=== PATIENT | female | born 1980 | race Caucasian/White ===

== ENCOUNTER 2022-04-24 08:52 | Emergency (ER) | payer MEDICAID, SELFPAY ==
--- NOTE | 2022-04-24 | XRR_ITS ---
PROCEDURE INFORMATION: Exam: XR Left Shoulder Exam date and time: 04/24/2022 9:09 AM Age: 41 years old Clinical indication: Left shoulder pain TECHNIQUE: Imaging protocol: Radiologic exam of the Left shoulder. Views: 2 or more views. COMPARISON: CR XR ribs LT mn 3V w [id number] 07/16/2018 9:03 AM FINDINGS: Bones/joints: There is calcific tendinosis of the rotator cuff; this can be exquisitely painful. Mild primary osteoarthritis at the glenohumeral joint. No fracture, dislocation or subluxation. No periosteal reaction or supsicious bone lesion. Soft tissues: No significant soft tissue swelling. IMPRESSION: 1. Calcific tendinosis of the rotator cuff; this can be exquisitely painful. 2. Mild primary osteoarthritis at the glenohumeral joint. 3. No acute fracture is seen. MTDD
--- NOTE | 2022-04-24 | XRR_ITS ---
PROCEDURE INFORMATION: Exam: XR RIGHT Shoulder Exam date and time: 04/24/2022 9:09 AM Age: 41 years old Clinical indication: RIGHT shoulder pain TECHNIQUE: Imaging protocol: Radiologic exam of the RIGHT shoulder. Views: 2 or more views. COMPARISON: CR XR ribs LT mn 3V w [id number] 07/16/2018 9:03 AM FINDINGS: Bones/joints: There is calcific tendinosis of the rotator cuff; this can be exquisitely painful. Mild primary osteoarthritis at the glenohumeral joint. No fracture, dislocation or subluxation. No periosteal reaction or supsicious bone lesion. Soft tissues: No significant soft tissue swelling. IMPRESSION: 1. Calcific tendinosis of the rotator cuff; this can be exquisitely painful. 2. Mild primary osteoarthritis at the glenohumeral joint. 3. No acute fracture is seen. MTDD
--- NOTE | 2022-04-24 08:53 | XRR_ITS ---
PROCEDURE INFORMATION: Exam: XR Left Shoulder Exam date and time: 04/24/2022 9:09 AM Age: 41 years old Clinical indication: Left shoulder pain TECHNIQUE: Imaging protocol: Radiologic exam of the Left shoulder. Views: 2 or more views. COMPARISON: CR XR ribs LT mn 3V w [id number] 07/16/2018 9:03 AM FINDINGS: Bones/joints: There is calcific tendinosis of the rotator cuff; this can be exquisitely painful. Mild primary osteoarthritis at the glenohumeral joint. No fracture, dislocation or subluxation. No periosteal reaction or supsicious bone lesion. Soft tissues: No significant soft tissue swelling.
[2022-04-24 09:02] VITALS: BP 140/92; PULSE 76; RESP 16; TEMP 36.5; O2SAT 98
--- NOTE | 2022-04-24 09:15 | USR_ITS ---
PROCEDURE INFORMATION: Exam: US Duplex Right Upper Extremity Veins, Limited Exam date and time: 04/24/2022 10:43 AM Age: 41 years old Clinical indication: Right upper arm pain. No injury. TECHNIQUE: Imaging protocol: Real-time Duplex ultrasound of the Right Upper Extremity with 2-D paredes scale, color Doppler flow and spectral waveform analysis with image documentation. Limited exam focused on the right upper extremity veins. COMPARISON: No relevant prior studies available. FINDINGS: The right internal jugular, subclavian, axillary, brachial, basilic, cephalic, radial and ulnar veins are patent. There is normal compression and augmentation. US/[place] [id number] IMPRESSION: No DVT is identified.
--- NOTE | 2022-04-24 09:16 | W.ED.EXTPRO ---
HPI - Extremity Problem General: Chief complaint: Extremity Injury, Upper Stated complaint: left shoulder pain Time Seen by Provider: 04/24/22 08:53 History of Present Illness: Patient is a 41-year-old female comes to the ED with right upper arm pain. Symptoms started approximately 4 days ago. Denies any injury or trauma to cause pain. Pain is located in the right upper arm and right shoulder. She states that yesterday she had scuffle and was wrestling her daughter. Today she woke up and it was hurting a lot more. She rates the pain currently 9 out of 10 and any abduction of right arm causes worsening pain. Denies any swelling. He has not taken anything for pain before coming to the ED. Associated symptoms: Deny chest pain, fever(s) or rash Review of Systems Const: Denies: fever(s), chills or fatigue Eyes: Denies: change in vision or eye discomfort ENMT: Denies: throat pain, odynophagia, nasal discharge or nasal congestion Card: Denies: chest pain, palpitations, edema, swelling of feet/ankles, dyspnea on exertion or orthopnea Resp: Denies: dyspnea, productive cough or non-productive cough GI: Denies: abdominal pain, nausea, vomiting, diarrhea, constipation or hematochezia : Denies: flank pain, dysuria or hematuria Musc: Reports: extremity pain (right upper arm and right shoulder); Denies: neck pain, back pain or extremity swelling Skin/Breast: Denies: rash or new lesions Neuro: Denies: headache(s), numbness in extremities or weakness in extremities [facility] ED PFSH: Medical History (Updated 04/25/22 @ 07:03 by ZONIA Whiting) No pertinent family history Surgical History (Updated 04/25/22 @ 07:03 by ZONIA Whiting) No pertinent past surgical history Physical Exam Const: COMMON NORMALS: no acute distress, patient oriented x3 and alert GENERAL APPEARANCE: cooperative and comfortable HENMT: COMMON NORMALS: normocephalic HEAD & SCALP: normocephalic MOUTH: Normal oral and palatal mucosa present THROAT: posterior oropharynx normal and uvula midline Neck/C-Spine: COMMON NORMALS: supple GENERAL: Yes normal visual inspection Resp: COMMON NORMALS: normal respiratory effort, No retractions, No use of accessory muscles and clear to auscultation bilaterally AUSCULTATION: clear to auscultation bilaterally Cardio: COMMON NORMALS: regular rate, regular rhythm, S1 normal heart sound present, S2 normal heart sound present, No gallops present (Cardio), No clicks present (Cardio), No murmurs present (Cardio) and Peripheral pulses 2+ throughout RATE: regular rate RHYTHM: regular rhythm HEART SOUNDS: S1 normal heart sound present and S2 normal heart sound present PERIPHERAL PULSES: Peripheral pulses 2+ throughout GI: COMMON NORMALS: Normal to inspection, nondistended, normoactive bowel sounds present, Soft to palpation, non-tender and no masses PALPATION: Yes Soft to palpation : COMMON NORMALS: Yes no CVA tenderness BLADDER/KIDNEY EXAM: Yes no CVA tenderness Back/Pelvis: COMMON NORMALS: no CVA tenderness Extremity: COMMON NORMALS: normal to inspection NARRATIVE EXTREMITY EXAM: Right upper arm?bicep tenderness soft tissue tenderness of the upper arm. Limited range of motion of right shoulder due to pain. Neurovascular tact distally. No swelling or ecchymosis noted. Neuro: COMMON NORMALS: patient oriented x3 SENSORIUM/ORIENTATION: Yes alert GAIT: Yes Normal gait present Skin: GENERAL SKIN EXAM: dry skin Course Vital Signs: Vital signs: Vital Signs Temperature 97.7 F 04/24/22 09:02 Pulse Rate 76 04/24/22 09:02 Respiratory Rate 16 04/24/22 09:02 Blood Pressure 140/92 04/24/22 09:02 Pulse Oximetry 98 04/24/22 09:02 MDM - Extremity (Nontraumatic) Medical Decision Making Patient is a 41-year-old female comes to the ED with right upper arm pain. Symptoms started approximately 4 days ago. Denies any injury or trauma to cause pain. Pain is located in the right upper arm and right shoulder. She states that yesterday she had scuffle and was wrestling her daughter. Today she woke up and it was hurting a lot more. Vitals are stable. Exam shows Right upper arm?bicep tenderness soft tissue tenderness of the upper arm. Limited range of motion of right shoulder due to pain. Neurovascular tact distally. No swelling or ecchymosis noted. Right shoulder x-ray shows calcific tendinosis of the rotator cuff but no acute fracture findings noted. Ultrasound venous duplex of right upper extremity shows no DVTs. Patient was diagnosed with right shoulder pain and placed in a shoulder sling. I put an order in with case management for patient be referred for follow-up on right shoulder pain. She was discharged home with a prescription for ibuprofen 800 mg. Return to ED precautions given. Patient understood and agreed with plan. Lab Data Radiology Impressions Shoulder X-Ray 04/24/22 08:53 IMPRESSION: 1. Calcific tendinosis of the rotator cuff; this can be exquisitely painful. 2. Mild primary osteoarthritis at the glenohumeral joint. 3. No acute fracture is seen. Venous Duplex 04/24/22 09:15 IMPRESSION: No DVT is identified. Discharge Plan Discharge Patient Disposition: Home Clinical Impression: Right shoulder pain Qualifiers: Chronicity: acute Qualified Code(s): M25.511 - Pain in right shoulder Condition: Stable Prescriptions: New ibuprofen 800 mg tablet 800 mg PO Q8H PRN (Reason: pain) Qty: 30 0RF Discharge Orders: Discharge ED (Routine); Ordered 04/24/22 Ordered By: Rupesh Strange Referrals: Daniel Elizabeth MD [Primary Care Provider] - Discharge Diet: Regular Discharge Activity: Increase activity as tolerated Patient Instructions: Shoulder Sprain (ED), Shoulder Pain (ED) Activity Restrictions/Additional Instructions: Follow-up with medical provider as directed. Case management will be contacting the next several days set up appoint with Ortho for follow-up on shoulder pain. Take medications as prescribed. Return to the ER or your medical provider if condition worsens. Please read and understand discharge instructions. Thank you for choosing [facility] for your healthcare needs today. Please realize this is an emergency room and that we are providing you with a medical screening exam and this may not be complete and all inclusive of all the testing and or work up that you may need to determine your ailment or severity of your illness. It is very important that you follow up as instructed or that you return to the Emergency Department should you have concerns or if your condition changes or worsens in any way. Stand Alone Forms: Work/School Release Coding Level of Care Code ED Project Development Director for Valentin Fwjuno Exam Comprehensive
[2022-04-24] MEDS: HYDROcodone-acetaminophen 5-325 mg Tablet 1 TAB PO (09:52)
[2022-04-24] MEDS: ketorolac 60 mg/2 mL INJ IM (11:11)
--- NOTE | 2022-04-25 11:44 | DCPLANNER ---
Addendum entered by Aicha Lawson 04/28/22 14:32: Patient had a follow up appointment scheduled for 04.27.[address] Carter at ortho. Patient did attend appointment. Original Note: assistant guest services manager had message to schedule a follow up appointment for patient with ortho. assistant guest services manager sent patients information to the front office staff at ortho. Patients information will be printed and reviewed. Clinic will call patient with appointment information.
== END 2022-04-24 11:18 | disposition home or self-care (01) ==
PROVIDERS: Emergency Provider Physician Assistant; PCP Family Medicine
DX: M25.511 Pain in right shoulder (principal)
CPT/HCPCS: 73030; 93971; 96372; 99284; J1885

== ENCOUNTER 2023-10-23 20:36 | Emergency (ER) | payer MEDICAID, SELFPAY ==
[2023-10-23 20:37] VITALS: BP 171/93; PULSE 87; RESP 16; TEMP 36.6; O2SAT 97
--- NOTE | 2023-10-23 21:05 | ED_ITS ---
HPI - Skin/Abscess/Foreign Bdy General: Chief complaint: Skin/Abscess/Foreign Body Stated complaint: breaking out with bumps everywhere itching Time Seen by Provider: 10/23/23 20:59 Source: patient Mode of arrival: ambulatory Limitations: no limitations History of Present Illness: 43-year-old female has a history of ecze ma states she does have an eczema outbreaks currently on steroid cream states she was at work today and noticed what appeared to be bug bites to her right leg mainly to the right knee that is been pruritic in nature she denies any fevers denies any drainage denies any pain Associated symptoms: Deny chills, fever(s), nausea or vomiting Review of Systems Const: Denies: fever(s), chills, body aches or change in appetite ENMT: Denies: throat pain or dental pain Card: Denies: chest pain Resp: Denies: dyspnea GI: Denies: abdominal pain, nausea, vomiting or diarrhea Musc: Denies: neck pain or back pain Skin/Breast: Reports: rash and pruritus PFSH ED PFSH: Medical History No pertinent family history Surgical History No pertinent past surgical history Physical Exam Const: COMMON NORMALS: no acute distress, patient oriented x3 and healthy appearing HENMT: COMMON NORMALS: normocephalic and atraumatic HEAD & SCALP: normocephalic and atraumatic Neck/C-Spine: COMMON NORMALS: full ROM and supple Chest: COMMONS NORMALS: normal inspection of the chest Resp: COMMON NORMALS: normal respiratory effort Cardio: COMMON NORMALS: regular rate RATE: regular rate Extremity: COMMON NORMALS: full ROM Neuro: COMMON NORMALS: patient oriented x3, moves all extremities and no focal motor deficits Psych: COMMON NORMALS: mental status grossly normal, Normal thought process present and cooperative THOUGHT PROCESS: Normal thought process present Skin: COMMON NORMALS: no wounds NARRATIVE SKIN EXAM: Eczema noted to lower legs along with elbows. Does have 5-6 appears to be insect bites to her right knee no cellulitis no abscess Course Vital Signs: Vital signs: Vital Signs Temperature 97.9 F 10/23/23 20:37 Pulse Rate 87 10/23/23 20:37 Respiratory Rate 16 06/03/24 20:37 Blood Pressure 171/93 10/23/23 20:37 Pulse Oximetry 97 10/23/23 20:37 Oxygen Delivery Me thod Room Air 10/23/23 20:37 MDM - Skin/Abscess/Foreign Bdy Medicial Decision Making Patient presents here with eczema she also has insect bites noted to her leg no signs of cellulitis we will give her a 5-day week course of oral steroids she is follow-up with PCP return if worsening she understands agrees plan Medical Records I reviewed the patient's medical records. No radiology studies performed this visit Discharge Plan Discharge Patient Disposition: Home Clinical Impression: Eczema, Insect bite Condition: Stable Prescriptions: New prednisone 50 mg tablet 50 mg PO DAILY Qty: 5 0RF No Action naproxen [Naprosyn] 500 mg tablet 500 mg PO BID 14 Days Qty: 28 0RF azithromycin 250 mg tablet See Rx Instructions PO .COMPLEX Qty: 6 0RF Rx Instructions: take 500 mg today (day 1), then 250 mg for 4 days (days 2-5) PO albuterol sulfate [Ventolin HFA] 90 mcg/actuation HFA aerosol inhaler 2 puff inhalation Q6H PRN (Reason: shortness of breath or wheezing) Qty: 8.5 0RF ibuprofen 800 mg tablet 800 mg PO Q8H PRN (Reason: pain) Qty: 30 0RF Discharge Orders: Discharge ED (Routine); Ordered 10/23/23 Ordered By: Elsy Perdomo Referrals: Daniel Elizabeth MD [Primary Care Provider] - 4-7 days Discharge Diet: Advance as tolerated Discharge Activity: Resume usual activity Patient Instructions: Eczema (ED), Insect Bite or Sting (ED) Coding Level of Care Code ED Pediatric Neuropsychologist for Valentin Mason
[2023-10-23] MEDS: predniSONE 20 mg Tablet 60 MG PO (21:15)
[2023-10-23] MEDS: diphenhydrAMINE 50 mg Capsule PO (21:15)
== END 2023-10-23 21:17 | disposition home or self-care (01) ==
PROVIDERS: Emergency Provider Emergency Medicine; PCP Family Medicine
DX: L30.9 Dermatitis, unspecified (principal); S80.261A Insect bite (nonvenomous), right knee, initial encounter; W57.XXXA Bitten or stung by nonvenomous insect and other nonvenomous arthropods, initial encounter
CPT/HCPCS: 99283; J7512; Q0163

== ENCOUNTER 2025-02-19 18:31 | Emergency (ER) | payer SELFPAY ==
--- OUTSIDE RECORDS SUMMARY | 2025-02-19 18:38 | XMS_ITS | Data Portability ---
Author Organization CARIE Ross [facility] Ej Sy [facility] Address [address] [phone] Assessment No assessment recorded. Plan of Treatment Reminders Order Date Submit Date Provider Last Modified By Organization Details Last Modified Time Details Appointments RECHECK 15 2024 08:45A Ekta Elizabeth MD Not available Not available Not available Lab TSH, serum or plasma 2023 [place] [address], [address], [place], [address], 02/27/2024 12:22:44 LDL, serum 2023 024 [employer] [place] [address], [address] Michael C, CAR[place], [address], 03/04/2024 14:23:55 CMP, serum or plasma 2023 024 [employer] [place] [address], [address] Michael C, CAR[place], [address], 02/27/2024 12:22:43 CMP, serum or plasma 2023 024 [place] [address], [address] Michael C, CAR[place], [address], 08/26/2023 10:42:58 lipid panel, blood 2023 024 [employer] [place] [address], [address] Michael C, [place], [address], 09/20/2023 08:23:57 CBC 2023 024 [employer] [facility], [address], [address], [place], [address], 08/25/2023 10:14:06 Referral None recorded. Procedures None recorded. Surgeries None recorded. Imaging None recorded. Medication Orders prednison e 10 mg tablet 2024 025 [facility] 15, [address], [place], [address], 08/30/2024 09:36:55 ibuprofen 800 mg tablet 2024 025 [facility] 15, [address], [place], [address], 08/30/2024 09:37:31 clobetaso l 0.05 % topical cream 2023 024 [facility] 15, [address], [place], [address], 08/25/2023 09:42:59 prednison e 10 mg tablet 2022 024 [facility] 15, [address], [place], [address], 08/25/2023 11:01:43 ibuprofen 800 mg tablet 2022 023 [facility] 15, [address], [place], [address], 02/20/2023 09:59:12 Patient TargetsNo targets recorded. Patient InstructionsNo instructions recorded. Reason for Referral None Reported. Results Created Date Observation Date Name Description Value Unit Range Abnormal Flag Note LastModifiedBy Organization Detail LastModifiedTime 08/25/19 24 08/25/2023 CBC WBC 8.9 x10 4.0-10 .5 Not Available [facility] [address] [facility] 1, [place], [address], 08/25/2023 10:14:06 08/25/19 24 08/25/2023 CBC RBC 4.72 x10 3.50-5 .50 Not Available [facility] [address] [facility] 1, [place], [address], 08/25/2023 10:14:06 08/25/19 24 08/25/2023 CBC HGB 15.3 g/dL 12.0-1 6.0 Not Available [facility] [address] [facility] 1, [place], [address], 08/25/2023 10:14:06 08/25/19 24 08/25/2023 CBC HCT 43.5 % 37.0-4 7.0 Not Available [facility] [address] [facility] 1, [place], [address], 08/25/2023 10:14:06 08/25/19 24 08/25/2023 CBC MCV 92.2 fL 80.0-9 9.9 Not Available [facility] [address] [facility] 1, [place], [address], 08/25/2023 10:14:06 08/25/19 24 08/25/2023 CBC MCH 32.5 pg 27.0-3 2.0 high Not Available [facility] [address] [facility] 1, [place], [address], 08/25/2023 10:14:06 08/25/19 24 08/25/2023 CBC MCHC 35.2 g/dL 32.0-3 6.0 Not Available [facility] [address] [facility] 1, [place], [address], 08/25/2023 10:14:06 08/25/19 24 08/25/2023 CBC RDW 12.6 % 11.5-1 4.5 Not Available [facility] [address] [facility] 1, [place], [address], 08/25/2023 10:14:06 08/25/19 24 08/25/2023 CBC plt 260.8 x10 140.0- 451.0 Not Available [facility] [address] [facility] 1, [place], [address], 08/25/2023 10:14:08/25/19 24 08/25/2023 CBC lymphocytes % 18.3 % 20.0-5 0.0 low Not Available [facility] [address] [facility] 1, [place], [address], 08/25/2023 10:14:08/25/19 24 08/25/2023 CBC granulcytes % 73.6 % 30.0-7 0.0 high Not Available [facility] [address] [facility] 1, [place], [address], 08/25/2023 10:14:06 08/25/19 24 08/25/2023 CBC monocytes % 4.5 % 2.0-10 .0 Not Available [facility] [address] [facility] 1, [place], [address], 08/25/2023 10:14:06 08/25/19 24 08/25/2023 CBC granulcytes# 6.6 x10 Not Elinor ilable [facility] [address] [facility] 1, [place], [address], 08/25/2023 10:14:06 08/25/19 24 08/25/2023 CBC lymphocytes # 1.6 x10 Not Available [facility] [address] [facility] 1, [place], [address], 08/25/2023 10:14:06 08/25/19 24 08/25/2023 CBC monocytes # 0.4 x10 Not Avai lable [facility] [address] [facility] 1, [place], [address], 08/25/2023 10:14:06 08/25/19 24 08/26/2023 LIPID PANEL , [place] cholesterol, total 199 mg/dL <200 normal Not Available [facility] [place] [address] [address] , [place], [address], 08/26/2023 10:42:57 08/25/19 24 08/26/2023 LIPID PANEL , [place] HDL cholesterol 40 mg/dL > or = 50 low Not Available [facility] [place] [address] [place], [address], 08/26/2023 10:42:57 08/25/19 24 08/26/2023 LIPID PANEL , [place] triglyceride s 131 mg/dL <150 normal Not Available [facility] [place] [address] [address] , [place], [address], 08/26/2023 10:42:57 08/25/19 24 08/26/2023 LIPID PANEL , [place] LDL-choleste rol 134 mg/dL _(melanie c) high Refer ence range : <100 Juaquin able range <100 mg/dL for prima ry preve ntion ; <70 mg/dL for patie nts with CHD or diabe tic patie nts with > or = 2 CHD risk facto rs. LDL-C is now calcu lated using the Karuna n-Hop kins calcu latcraig n, which is a valid ated novel lee mares than the Fried lili equat ion in the estim ation of LDL-C . Karuna torres SS et al. GLORIA. 2013; 310(1 9): 2061- 2068 (http ://ed ucati on.Qu estDi Catalyst Repository Systemss. com/f aq/FA Q164) Not Available [address], [address], 08/26/2023 10:42:57 08/25/19 24 08/26/2023 LIPID PANEL , [place] chol/HDLC ratio 5.0 (calc ) <5.0 high Not Available [address], [address], 08/26/2023 10:42:57 08/25/19 24 08/26/2023 LIPID PANEL , [place] non HDL cholesterol 159 mg/dL _(melanie c) <130 high For patie nts with diabe adrienne plus 1 major ASCVD risk facto r, treat ing to a non-H DL-C goal of <100 mg/dL (LDL- C of <70 mg/dL ) is consi liam torres pecleo c optio n. Not Available [address], [address], 08/26/2023 10:42:57 08/25/19 24 08/26/2023 COMPR EHENS RONY METAB OLIC PANEL glucose 94 mg/dL 65-99 normal Fasti ng refer ence inter zeina Not Available [address], [address], 08/26/2023 10:42:58 08/25/19 24 08/26/2023 COMPR EHENS RONY METAB OLIC PANEL urea nitrogen (BUN) 10 mg/dL 7-25 normal Not Available [address], [address], 08/26/2023 10:42:58 08/25/19 24 08/26/2023 COMPR EHENS RONY METAB OLIC PANEL creatinine 0.84 mg/dL 0.50-0 .99 normal Not Available [address], [address], 08/26/2023 10:42:58 08/25/19 24 08/26/2023 COMPR EHENS RONY METAB OLIC PANEL eGFR 89 mL/mi n/1.7 3m2 > or = 60 normal Not Available [address], [address], 08/26/2023 10:42:58 08/25/19 24 08/26/2023 COMPR EHENS RONY METAB OLIC PANEL BUN/creatini ne ratio SEE NOTE: (calc ) 6-22 Not Repor donna: BUN and Creat inine are withi n refer ence range . Not Available [address], [address], 08/26/2023 10:42:58 08/25/19 24 08/26/2023 COMPR EHENS RONY METAB OLIC PANEL sodium 139 mmol/ L 135-14 6 normal Not Available [address], [address], 08/26/2023 10:42:58 08/25/19 24 08/26/2023 COMPR EHENS RONY METAB OLIC PANEL potassium 4.6 mmol/ L 3.5-5. 3 normal Not Available [address], [address], 08/26/2023 10:42:58 08/25/19 24 08/26/2023 COMPR EHENS RONY METAB OLIC PANEL chloride 106 mmol/ L 98-110 normal Not Available [address], [address], 08/26/2023 10:42:58 08/25/19 24 08/26/2023 COMPR EHENS RONY METAB OLIC PANEL carbon dioxide 23 mmol/ L 20-32 normal Not Available [address], [address], 08/26/2023 10:42:58 08/25/19 24 08/26/2023 COMPR EHENS RONY METAB OLIC PANEL calcium 9.4 mg/dL 8.6-10 .2 normal Not Available [address], [place], [address], 08/26/2023 10:42:58 08/25/19 24 08/26/2023 COMPR EHENS RONY METAB OLIC PANEL protein, total 7.3 g/dL 6.1-8. 1 normal Not Available [address], [address], 08/26/2023 10:42:58 08/25/19 24 08/26/2023 COMPR EHENS RONY METAB OLIC PANEL albumin 4.6 g/dL 3.6-5. 1 normal Not Available [address], [address], 08/26/2023 10:42:58 08/25/19 24 08/26/2023 COMPR EHENS RONY METAB OLIC PANEL globulin 2.7 g/dL_ (calc ) 1.9-3. 7 normal Not Available [address], [address], 08/26/2023 10:42:58 08/25/19 24 08/26/2023 COMPR EHENS RONY METAB OLIC PANEL albumin/glob ulin ratio 1.7 (calc ) 1.0-2. 5 normal Not Available [address], [address], 08/26/2023 10:42:58 08/25/19 24 08/26/2023 COMPR EHENS RONY METAB OLIC PANEL bilirubin, total 0.7 mg/dL 0.2-1. 2 normal Not Available [address], [address], 08/26/2023 10:42:58 08/25/19 24 08/26/2023 COMPR EHENS RONY METAB OLIC PANEL alkaline phosphatase 53 U/L 31-125 normal Not Available [place] [address] [place], [address], 08/26/2023 10:42:58 08/25/19 24 08/26/2023 COMPR EHENS RONY METAB OLIC PANEL AST 15 U/L 10-30 normal Not Available [address], [address], 08/26/2023 10:42:58 08/25/19 24 08/26/2023 COMPR EHENS RONY METAB OLIC PANEL ALT 14 U/L 6-29 normal Not Available [address], [address], 08/26/2023 10:42:58 02/26/20 24 02/27/2024 DIREC T LDL direct LDL 68 mg/dL <100 normal Juaquin able range <100 mg/dL for prima ry preve ntion ; <70 mg/dL for patie nts with CHD or diabe tic patie nts with > or = 2 CHD risk facto rs. Not Available [address], [address], 02/27/2024 12:22:42 02/26/2002/27/2024 COMPR EHENS RONY METAB OLIC PANEL glucose 81 mg/dL 65-99 normal Fasti ng refer ence inter zeina Not Available [address], [address], 02/27/2024 12:22:43 02/26/20 24 02/27/2024 COMPR EHENS RONY METAB OLIC PANEL urea nitrogen (BUN) 8 mg/dL 7-25 normal Not Available [address], [address], 02/27/2024 12:22:43 02/26/20 24 02/27/2024 COMPR EHENS RONY METAB OLIC PANEL creatinine 0.89 mg/dL 0.50-0 .99 normal Not Available [address], [address], 02/27/2024 12:22:43 02/26/20 24 02/27/2024 COMPR EHENS RONY METAB OLIC PANEL eGFR 83 mL/mi n/1.7 3m2 > or = 60 normal Not Available [address], [address], 02/27/2024 12:22:43 02/26/20 24 02/27/2024 COMPR EHENS RONY METAB OLIC PANEL BUN/creatini ne ratio SEE NOTE: (calc ) 6-22 Not Repor donna: BUN and Creat inine are withi n refer ence range . Not Available [address], [address], 02/27/2024 12:22:43 02/26/20 24 02/27/2024 COMPR EHENS RONY METAB OLIC PANEL sodium 138 mmol/ L 135-14 6 normal Not Available [address], [address], 02/27/2024 12:22:43 02/26/20 24 02/27/2024 COMPR EHENS RONY METAB OLIC PANEL potassium 4.6 mmol/ L 3.5-5. 3 normal Not Available [address], [address], 02/27/2024 12:22:43 02/26/2002/27/2024 COMPR EHENS RONY METAB OLIC PANEL chloride 106 mmol/ L 98-110 normal Great ly eleva donna Trigl yceri bogdan value s (>120 0 mg/dL ) inter fere with the dLDL assay . Not Available [address], [address], 02/27/2024 12:22:43 02/26/20 24 02/27/2024 COMPR EHENS RONY METAB OLIC PANEL carbon dioxide 26 mmol/ L 20-32 normal Not Available [address], [address], 02/27/2024 12:22:43 02/26/20 24 02/27/2024 COMPR EHENS RONY METAB OLIC PANEL calcium 9.7 mg/dL 8.6-10 .2 normal Not Available [address], [address], 02/27/2024 12:22:43 02/26/20 24 02/27/2024 COMPR EHENS RONY METAB OLIC PANEL protein, total 7.2 g/dL 6.1-8. 1 normal Not Available [address], [address], 02/27/2024 12:22:43 02/26/2002/27/2024 COMPR EHENS RONY METAB OLIC PANEL albumin 4.7 g/dL 3.6-5. 1 normal Not Available [address], [address], 02/27/2024 12:22:43 02/26/20 24 02/27/2024 COMPR EHENS RONY METAB OLIC PANEL globulin 2.5 g/dL_ (calc ) 1.9-3. 7 normal Not Available [address], [address], 02/27/2024 12:22:43 02/26/20 24 02/27/2024 COMPR EHENS RONY METAB OLIC PANEL albumin/glob ulin ratio 1.9 (calc ) 1.0-2. 5 normal Not Available [address], [address], 02/27/2024 12:22:43 02/26/2002/27/2024 COMPR EHENS RONY METAB OLIC PANEL bilirubin, total 0.6 mg/dL 0.2-1. 2 normal Not Available [address], [address], 02/27/2024 12:22:43 10/07/20 24 02/27/2024 COMPR EHENS RONY METAB OLIC PANEL alkaline phosphatase 60 U/L 31-125 normal Not Available [facility] [address] [place], [address], 02/27/2024 12:22:43 02/26/20 24 02/27/2024 COMPR EHENS RONY METAB OLIC PANEL AST 16 U/L 10-30 normal Not Available [place] [address] [place], [address], 02/27/2024 12:22:43 02/26/20 24 02/27/2024 COMPR EHENS RONY METAB OLIC PANEL ALT 17 U/L 6-29 normal Not Available [place] [address] [place], [address], 02/27/2024 12:22:43 02/26/20 24 02/27/2024 TSH TSH 2.98 mIU/L normal Refer ence Range > or = 20 Years 0.40- 4.50 Pregn nacho Range s First trime ster 0.26- 2.66 Secon d trime ster 0.55- 2.73 Third trime ster 0.43- 2.91 Not Available [place] [address] [place], [address], 02/27/2024 12:22:44 Result Notes None recorded. Problems Name Problem SNOMED Code Status Onset Date Resolution Date Notes Provider Name and Address Organization Details Recorded Time Inflammation of joint of shoulder region 326923308 Active 2022 PIEDAD lackey [facility] 5 09:24:38 Pain of multiple joints 03502376 Active 2023 PIEDAD lackey [facility] L.LRickyCR[facility] 5 09:24:38 Psoriasis 7322565 Active 2023 PIEDAD lackey [facility] L.L.CR[facility] 5 09:24:38 Neck pain 85639843 Active 2023 PIEDAD lackey [facility], Ej 5 09:24:38 [facility]lipidemia 23869678 [facility] 09:24:38 Reduced libido 7435097 [facility] 09:24:50 Problem Notes None recorded. Procedures Surgical History Date Name Laterality Status Provider Name and Address Organization Details Recorded Time 8 section completed PIEDAD ALAS [facility], Ej 08/30/2024 10:04:41 Imaging Results None recorded. Procedure Notes None recorded. Medical Equipment None Reported. Allergies Allergen ID Allergen Name Allergen Category Reaction Reaction Severity Criticality Documentation Date Start Date Code Code System Note Provider Name and Address Organization Details Recorded Time 29139 Product containin g penicilli n (product) medicatio n Not available Not available Not available 12/17/2022 45107 8001 SNOMED Comme nt: Recor ded 06/24 1:32P M by Candido Gongora i Visit ; Nano walls ce: *; ; Not Available [facility] 3 02:28:43 Medications Name Sig Start Date Stop Date Status Note LastModified by Organization Details LastModified Time prednison e 10 mg tablet TAKE ONE TABLET BY MOUTH DAILY NEEDED FOR ARTHRITI S FLARES active Not Available Not Available No t Available atorvasta tin 20 mg tablet Take 1 tablet by mouth once daily 2024 active Not Available Not Available Not Avai lable azithromy susie 250 mg tablet TAKE 2 TABLETS BY MOUTH ON DAY 1, AND THEN TAKE 1 TABLET BY MOUTH ONCE A DAY ON DAY 2 THROUGH DAY 5 08/24 completed Not Available Not Available Not Available ibuprofen 800 mg tablet TAKE 1 TABLET BY MOUTH THREE TIMES DAILY active Not Available Not Available No t Available prednison e 20 mg tablet TAKE 1 TABLET BY MOUTH ONCE DAILY 02/20 completed Not Available Not Available Not Available clobetaso l 0.05 % topical cream APPLY A THIN LAYER TO THE AFFECTED AREA(S) TOPICALL Y TWICE DAILY active Not Available Not Available No t Available betametha sone valerate 0.1 % lotion two times daily 02/20 completed Recorded 06/24/19 23 2:11PM by Daniel Elizabeth MD, Office Visit; Refill Quantity : 60; Gram; Not Available Not Available Not Available betametha sone valerate 0.1 % topical cream APPLY CREAM TOPICALL Y TWICE DAILY TO AFFECTED AREA NEEDED 08/24 completed Not Available Not Available Not Available prednison e 50 mg tablet TAKE 1 TABLET BY MOUTH ONCE DAILY 08/30 completed Not Available Not Available Not Available naproxen 500 mg tablet TAKE 1 TABLET BY MOUTH TWICE DAILY FOR 2 WEEKS 02/20 completed Not Available Not Available Not Available Ventolin HFA 90 mcg/actua tion aerosol inhaler INHALE 2 PUFFS BY MOUTH EVERY 6 HOURS NEEDED FOR SHORTNES S OF BREATH FOR WHEEZING 08/24 completed Not Available Not Available Not Available azithromy susie 500 mg tablet TAKE 1 TABLET BY MOUTH ONCE DAILY FOR 5 DAYS 02/20 completed Not Available Not Available Not Available Vitals Date Recorded Body height Body mass index (BMI) Body weight Heart rate Systolic And Diastolic Provider Name and Address Organization Details Last Updated DateTime 08/25/2023 167.64 cm 30.7 kg/m2 65625.55 g 70 /min 141/92 mm[Hg] NOEMY PROCTOR [facility] 4 09:25:57 Date Recorded Body height Body mass index (BMI) Body weight Oxygen saturation Oxygen saturation in Arterial blood by Pulse oximetry Heart rate Systolic And Diastolic Provider Name and Address Organization Details Last Updated DateTime 5 167.64 cm 31.6 kg/m2 23352.1 g 99 % 99 % 81 /min 116/78 mm[Hg] PIEDAD ALAS [facility] 5 09:26:41 Date Recorded Body height Body mass index (BMI) Body weight Oxygen saturation Oxygen saturation in Arterial blood by Pulse oximetry Heart rate Systolic And Diastolic Provider Name and Address Organization Details Last Updated DateTime 3 167.64 cm 30.2 kg/m2 50649.7 7 g 98 % 98 % 73 /min 149/93 mm[Hg] NOEMY PROCTOR [facility] 3 09:43:55 Date Recorded Body height Body mass index (BMI) Body weight Oxygen saturation Oxygen saturation in Arterial blood by Pulse oximetry Heart rate Systolic And Diastolic Provider Name and Address Organization Details Last Updated DateTime 4 167.64 cm 30.3 kg/m2 52003.3 7 g 97 % 97 % 75 /min 130/88 mm[Hg] PIEDAD ALAS [facility] 4 09:29:20 Social History None recorded. Functional Status Question Answer Note LastModified by Organization D etails LastModified Time What is your level of alcohol consumption? None [email or web address] Information not available 02/20/2023 Mental Status None recorded. Family History Nothing Reported. Medical History No medical history recorded. Gynecological HistoryNo gynecological history recorded. Obstetrics History GPAL:G 0 P 0 0 0 0 Immunizations Vaccine Type Date Status Note Provider Nam e and Address Organization Details Recorded Time Hep B, adolescent or pediatric 09/25/2001 completed PIEDAD lackey [facility] 02/26/2024 09:24:29 Hep B, adolescent/high risk 03/27/2001 completed PIEDAD lackey [facility] 02/26/2024 09:24:29 Hep B, adolescent/high risk 05/01/2001 completed PIEDAD lackey [facility] 02/26/2024 09:24:29 Past Encounters Encounter ID Performer Location Encounter Start Date Encounter Closed Date Diagnosis/Indication Diagnosis SNOMED-CT Code Diagnosis ICD10 Code Diagnosis IMO Codes Diagnosis Note [id number] Daniel Elizabeth MD [facility] ([facility]) [address] [place] [phone] 02/20/2023 09:35:08 02/20/2023 15:55:34 Inflammation of joint of shoulder region 249694892 M13.819 right [id number] Daniel Elizabeth MD [facility] ([facility]) [address] [place] [phone] 08/25/2023 09:16:15 08/25/2023 10:34:18 Pain of multiple joints 64608685 M25.50 Psoriasis 3975763 L40.9 left lower leg and bilateral elbows. [id number] Daniel Elizabeth MD [facility] ([facility]) [address] [place] [phone] 02/26/2024 09:16:42 02/26/2024 09:46:19 Pain of multiple joints 54927068 M25.50 Neck pain 97201311 M54.2 Hyperlipidemia 76183858 E78.5 Tolerating atorvastat in well. Reduced libido 3534982 R 68.82 [id number] Daniel Elizabeth MD [facility] ([facility]) [address] [place] [phone] 08/30/2024 09:00:40 08/30/2024 13:56:20 Hyperlipidemia 27176903 E78.5 Tolerating atorvastat in well. Pain of mu ltiple joints 75962355 M25.50 Inflammati on of joint of shoulder region 825873303 M13.819 right Health Concerns Section Related Observation LastModified by Organization Detai ls LastModified Time None Recorded Concern Status LastModified by Organization Details LastModified Time None Recorded Advance Directives Directive None Recorded Payers Insurance Date Sequence Insurance Name Policy Number Policy Katz Covered Member ID Katz Member ID Guarantor Name 08/30/2024 1 [facility] (MEDICAID HMO) Meghan Ferreira [id number] Meghan Ferreira 08/30/2024 [facility] (MEDICAID HMO) Meghan Ferreira [id number] Meghan Ferreira Notes Date Note Type Note Provider Name and Address Organization Details Recorded Time 3 text/html right shoulder pain has been persistant for several months. She has done home exercises such as range of motion and stretching exercises. Daniel Elizabeth MD [address] [place] [address], [phone], [facility]. 02/20/2023 09:59:07 4 text/html HyperlipidemiaReported by PatientHPIFor duration, patient reportschronic. For control, patient reportsusually well controlled. For adherence to treatment plan, patient reportstakes medications as prescribed.No side effects of meds. Daniel Elizabeth MD [address] [place] [address], [phone], [facility], Bob. 02/26/2024 09:44:55 5 text/html HyperlipidemiaReported by PatientHPIFor duration, patient reportschronic. For control, patient reportsusually well controlled. For adherence to treatment plan, patient reportstakes medications as prescribed. Daniel Elizabeth MD [address] [place] [address], [phone], [facility], Ej 08/30/2024 09:38:01 OBGyn Episode No OBEpisode recorded.
[2025-02-19 18:48] VITALS: BP 105/77; PULSE 89; TEMP 37.5; O2SAT 98; BMI 28.7
[2025-02-19 19:34] LABS: Rapid Strep A Test Negative (Negative)
--- NOTE | 2025-02-19 19:50 | W.ED.URI ---
HPI - URI/Sore Throat General: Chief Complaint: Upper Respiratory Infection Stated Complaint: sore throat body aches Time Seen by Provider: 02/19/25 19:35 Source: patient Mode of arrival: ambulatory Limitations: no limitations History of Present Illness: Patient is a 44-year-old female presents emergency department planing of sore throat and bodyaches for the past couple days. Reports positive sick contact exposure. Notes that she has pain with swallowing, but no trouble breathing. Reporting subjective fevers, no chills at home. No abdominal pain, nausea or vomiting, urinary symptoms, headache, lightheadedness or dizziness, shortness of breath, cough, or other symptoms reported at this time. MD elicited complaint: sore throat Onset (ago): day(s) Context: sick contacts Associated symptoms: Deny abdominal pain, chills, chest pain, diarrhea, ear or mastoid pain, fever(s), headache(s), nausea or vomiting Related Data Previous Rx's ?Medication ?Instructions ?Recorded ibuprofen 800 mg tablet 800 mg PO Q8H PRN pain #30 tabs 04/24/22 naproxen 500 mg tablet (Naprosyn) 500 mg PO BID 2 weeks #28 tabs 04/27/22 albuterol sulfate 90 mcg/actuation 2 puff inhalation Q6H PRN 07/23/23 aerosol inhaler (Ventolin HFA) shortness of breath or wheezing #8.5 grams azithromycin 250 mg tablet See Rx Instructions PO .COMPLEX #6 07/23/23 tabs prednisone 50 mg tablet 50 mg PO DAILY #5 tabs 10/23/23 clindamycin HCl 300 mg capsule 300 mg PO BID 7 days #14 caps 02/19/25 prednisone 20 mg tablet 60 mg (3 x 20 mg) PO ONCE 5 days 02/19/25 #15 tabs Allergies Allergy/AdvReac Type Severity Reaction Status Date / Time Penicillins Allergy ALGY-Hives Verified 02/19/25 18:53 Review of Systems General: Reports: 10 or more systems reviewed and unremarkable except in HPI and below Const: Reports: body aches; Denies: fever(s), chills or fatigue Eyes: Denies: change in vision ENMT: Reports: throat pain and odynophagia; Denies: ear or mastoid pain or nasal discharge Card: Denies: chest pain, palpitations, swelling of feet/ankles or lightheadedness Resp: Denies: dyspnea, productive cough or wheezing GI: Denies: abdominal pain, nausea, vomiting, diarrhea or constipation : Denies: flank pain, difficulty voiding, dysuria or urinary frequency Musc: Denies: neck pain, back pain or joint pain Skin/Breast: Denies: rash Neuro: Denies: headache(s), numbness in extremities or weakness in extremities PFSH ED PFSH: Medical History No pertinent family history Surgical History No pertinent past surgical history Physical Exam Const: COMMON NORMALS: no acute distress and healthy appearing GENERAL APPEARANCE: cooperative, comfortable and well developed HENMT: COMMON NORMALS: normocephalic and Normal external nose present HEAD & SCALP: normal to inspection and normocephalic NOSE: Normal external nose present MOUTH: Normal oral and palatal mucosa present OTHER: Bilateral tonsillar edema with exudate and erythema. Eye: COMMON NORMALS: conjunctivae normal GENERAL EYE: appearance normal, both eyes and all related structures CONJUNCTIVA: Yes conjunctivae normal Neck/C-Spine: COMMON NORMALS: full ROM and no meningeal signs GENERAL: Yes normal visual inspection OTHER: Bilateral cervical lymphadenopathy Resp: COMMON NORMALS: normal respiratory effort and clear to auscultation bilaterally AUSCULTATION: clear to auscultation bilaterally Cardio: COMMON NORMALS: regular rate and regular rhythm RATE: regular rate RHYTHM: regular rhythm GI: COMMON NORMALS: Soft to palpation INSPECTION: Yes normal to inspection PALPATION: Yes Soft to palpation Extremity: COMMON NORMALS: normal to inspection and full ROM Neuro: MENINGEAL SIGNS: Yes no meningeal signs Skin: COMMON NORMALS: no rashes or lesions noted GENERAL SKIN EXAM: no rashes or lesions noted Course Vital Signs: Vital signs: Vital Signs Temperature 99.5 F 02/19/25 18:48 Pulse Rate 89 02/19/25 18:48 Blood Pressure 105/77 02/19/25 18:48 Pulse Oximetry 98 02/19/25 18:48 Oxygen Delivery Me thod Room Air 02/19/25 18:48 MDM - URI/Sore Throat Medical Decision Making Treating empirically for tonsillitis with clindamycin and steroids. No concerning systemic symptoms, she is nontoxic-appearing stable for discharge home with outpatient therapy and told to follow-up primary care for reevaluation. General return precautions given. Lab Data Laboratory Results Group A Strep Rapid Negative (Negative) 02/19/25 18:52 No radiology studies performed this visit Discharge Plan Discharge Patient Disposition: Home Clinical Impression: Acute tonsillitis Condition: Stable Prescriptions: New clindamycin HCl 300 mg capsule 300 mg PO BID 7 Days Qty: 14 0RF prednisone 20 mg tablet 60 mg PO ONCE 5 Days Qty: 15 0RF No Action naproxen [Naprosyn] 500 mg tablet 500 mg PO BID 14 Days Qty: 28 0RF azithromycin 250 mg tablet See Rx Instructions PO .COMPLEX Qty: 6 0RF Rx Instructions: take 500 mg today (day 1), then 250 mg for 4 days (days 2-5) PO albuterol sulfate [Ventolin HFA] 90 mcg/actuation HFA aerosol inhaler 2 puff inhalation Q6H PRN (Reason: shortness of breath or wheezing) Qty: 8.5 0RF ibuprofen 800 mg tablet 800 mg PO Q8H PRN (Reason: pain) Qty: 30 0RF prednisone 50 mg tablet 50 mg PO DAILY Qty: 5 0RF Discharge Orders: Discharge ED (Routine); Ordered 02/19/25 Ordered By: French Reyna Referrals: Daniel Elizabeth MD [Primary Care Provider, [facility]] Patient Instructions: Opioid Safety Activity Restrictions/Additional Instructions: Please take clindamycin and prednisone as prescribed. Return with any trouble breathing, ability to swallow high fevers, vomiting, or any other concerns that you have. Please follow-up with your primary care provider. Print Language: [place] Coding Level of Care Code ED Safety Belt Installer for Valentin Mason
[2025-02-19 20:00] VITALS: BP 148/85; PULSE 89; O2SAT 99
[2025-02-19 20:06] LABS: Respiratory Syncytial Virus Ce NEGATIVE (Negative); SARS-CoV-2 PCR NEGATIVE (Negative)
== END 2025-02-19 20:02 | disposition home or self-care (01) ==
PROVIDERS: Emergency Provider Physician Assistant; PCP Family Medicine
DX: J03.90 Acute tonsillitis, unspecified (principal)
CPT/HCPCS: 87081; 87637; 87880; 96372; 99284; J1100; J9999